=== PATIENT | female | born 1985 | race Caucasian/White ===

== ENCOUNTER → 2024-10-09 | Outpatient (CLI) | payer OTHER ==
[2024-10-09 14:47] VITALS: BP 99/62; PULSE 72; RESP 19; TEMP 96.3
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
== END ==
LOC: PNWHC3 14:06
PROVIDERS: ATTEND Specialist
DX: M46.1 Sacroiliitis, not elsewhere classified (principal)
CPT/HCPCS: 99211

== ENCOUNTER → 2024-11-18 | Outpatient (CLI) | payer OTHER ==
[2024-11-18 12:39] VITALS: BP 97/68; PULSE 69; RESP 16; TEMP 97.7
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
== END ==
LOC: PNWHC3 11:52
PROVIDERS: ATTEND Specialist
DX: S33.5XXA Sprain of ligaments of lumbar spine, initial encounter (principal); M46.1 Sacroiliitis, not elsewhere classified; Z88.5 Allergy status to narcotic agent; V89.2XXA Person injured in unspecified motor-vehicle accident, traffic, initial encounter
CPT/HCPCS: 99211

== ENCOUNTER 2024-12-12 11:04 | Day surgery (SDC) | payer OTHER ==
[~2024-12-12 11:04] MED LIST: LACTATED RINGERS 1,000 ML IV SCH
[2024-12-12 12:07] VITALS: TEMP 97
[2024-12-12] MEDS ORDERED: methylPREDNISolone ACETATE 40 MG/ML 1 ML VIAL ONE (13:55)
[2024-12-12] MEDS ORDERED: ROPIVACAINE 5 MG/ML 30 ML VIAL ONE (13:55)
--- NOTE | 2024-12-12 14:10 | P.PCN ---
Description of Procedure: Preprocedure diagnosis. Sacroiliac joint arthropathy. Postprocedure diagnosis. As above. Procedure done. Injection of the radio contrast material into left sacroiliac joint, sacroiliac joint arthrogram, interpretation of arthrogram. left sacroiliac joint injection with local anesthetics and steroid under fluoroscopic guidance. Anesthesia. Local anesthetic infiltration. Continuous EKG, pulse ox, blood pressure, and verbal communication was maintained with the patient in OR. Blood loss. Minimal. Indication. Sacroiliac joint arthropathy. Discussed the procedure, alternatives, complications which may include infection,bleeding, nerve damage, aggravation of pain which could be permanent. Patient understands and questions were answered. Procedure note. After getting consent patient in OR in prone position. Back prepped with chlorhexidine and draped in sterile manner. After injecting 10 mL of 1% lidocaine subcutaneously, a 23-gauge spinal needle was introduced under tunnel vision of the fluoroscope in the lower and posterior one third of left sacroiliac joint. After needle position confirmation by AP and crosstable lateral view, 1 mL of Isovue 200 contrast was injected. Contrast was noted to be into the sacroiliac joint. After repeat negative aspiration, 2.5 mL solution was injected which consists of 1.5 ml of 0.5% Ropivacaine mixed with 1 mL of 40 mg Depo-Medrol. After the procedure needles were taken out. Bandage applied. Disposition. Patient tolerated the procedure well. No complication. Patient was discharged home in stable condition.
[2024-12-12 14:15] VITALS: RESP 16
--- NOTE | 2024-12-12 14:21 | FL ---
EXAMINATION TYPE: FL guided pain mgmt statistic Intraoperative/procedural fluoroscopic services were provided. CLINICAL INDICATION:Female, 39 years old with history of SI Inj; , [facility] FINDINGS: Fluoroscopic imaging demonstrating right SI joint injection. No radiographic evidence for complicatio n. Total fluoroscopy time is 24.6 seconds. DAP: [id number] [id number] Please see the operative/procedural note for further details. [facility], , 12/12/2024 2:18 PM
[2024-12-12 14:35] VITALS: BP 110/75; PULSE 78
== END 2024-12-12 14:34 ==
LOC: ORPAIN 11:04
PROVIDERS: ATTEND Pain Medicine Interventional Pain Medicine
DX: M46.1 Sacroiliitis, not elsewhere classified (principal); Z88.5 Allergy status to narcotic agent
CPT/HCPCS: 81025; 27096; J2795; J1010

== ENCOUNTER → 2025-01-01 | Outpatient (CLI) | payer OTHER ==
[2025-01-01 14:23] VITALS: BP 133/76; PULSE 81; RESP 17
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
== END | disposition home or self-care (01) ==
LOC: PNWHC3 13:55
PROVIDERS: ATTEND Specialist
DX: S33.5XXA Sprain of ligaments of lumbar spine, initial encounter (principal); M46.1 Sacroiliitis, not elsewhere classified; V89.2XXA Person injured in unspecified motor-vehicle accident, traffic, initial encounter; Z88.5 Allergy status to narcotic agent
CPT/HCPCS: 99212